=== PATIENT | female | born 1940 | race Caucasian/White ===

== ENCOUNTER 2023-01-17 08:04 | Outpatient (CLI) | payer MEDICARE ==
[2023-01-17] MEDS ORDERED: Iopamidol 300 61% 100 ML VIAL FS ONE (09:12)
== END 2023-01-17 08:05 | disposition home or self-care (01) ==
LOC: CSHCT 08:04
PROVIDERS: ATTEND Internal Medicine
DX: R31.29 Other microscopic hematuria (principal); Z85.528 Personal history of other malignant neoplasm of kidney
CPT/HCPCS: 74178; 82565

== ENCOUNTER 2023-02-16 09:00 | Outpatient (CLI) | payer MEDICARE | END 2023-02-16 09:01 | disposition home or self-care (01) | LOC: CSHMAMMO 09:00 | PROVIDERS: ATTEND Internal Medicine | DX: Z12.31 Encounter for screening mammogram for malignant neoplasm of breast (principal); Z85.3 Personal history of malignant neoplasm of breast; Z85.528 Personal history of other malignant neoplasm of kidney | CPT/HCPCS: 77063; 77067 ==